=== PATIENT | female | born 1945 | race Caucasian/White ===

== ENCOUNTER 2019-10-15 12:11 | Inpatient (IN) | payer MEDICARE ==
[~2019-10-15] VITALS: Ht 165.1 cm; Wt 95.2 kg
--- NOTE | 2019-10-15 12:20 | NUR ---
PT BROUGHT IN BY [facility] FROM [facility] FOR WORSENING PNEUMONIA. PER REPORT PT DX WITH JACOB 3 WEEKS AGO, FINISHED ABX, HOWEVER WORSENING COUGH. PATIENT ABLE TO COMPLETE FULL SENTANCES.
[2019-10-15] MEDS ORDERED: ALBUTEROL/IPRATROPIUM 2.5MG/0.5MG, 3 ML NPPB ONE (12:30)
[2019-10-15] MEDS ORDERED: SODIUM CHLORIDE FLUSH 10ML SYR IVF ONE ×2 (12:30→14:00)
[2019-10-15] MEDS ORDERED: CEFTRIAXONE PMX 1GM/50ML 50 ML IVPB ONE (12:30)
[2019-10-15] MEDS ORDERED: ALBUTEROL/IPRATROPIUM 2.5MG/0.5MG, 3 ML ONE (12:32)
[2019-10-15] MEDS ORDERED: CEFTRIAXONE PMX 1GM/50ML 50 ML ONE (12:36)
[2019-10-15] MEDS ORDERED: DOXYCYCLINE 100MG TABLET ONE (12:37)
[2019-10-15] MEDS ORDERED: PLEASE ENTER ALLERGIES MC SCH (13:00)
[2019-10-15 13:21] LABS: MEAN CORPUSCULAR HEMOGLOBIN 29.3 pg (27.0-34.8); MEAN CORPUSCULAR HGB CONC 33.4 g/dL (32.4-35.8); MEAN CORPUSCULAR VOLUME 87.8 fL (80-100); MEAN PLATELET VOLUME 8.7 fL (7.4-10.4); PLATELET COUNT 254 x10^3/uL (130-400); RED BLOOD COUNT 4.59 x10^6/uL (3.82-5.3); RED CELL DISTRIBUTION WIDTH 14.6 % (9.6-15.2)
[2019-10-15 13:30] LABS: ALBUMIN 3.3 g/dL (3.4-5.0); ANION GAP 9 mmol/L (5-15); CALCIUM 8.9 mg/dL (8.5-10.1); CHLORIDE 105 mmol/L (98-107); CREATININE 0.75 mg/dL (0.55-1.02)
[2019-10-15] MEDS ORDERED: DOXYCYCLINE 100 MG in DEXTROSE 5% 250 ML IV ONE (13:30)
[2019-10-15 13:34] LABS: TROPONIN I < 0.015 ng/mL (0.000-0.045)
--- NOTE | 2019-10-15 13:49 | NUR ---
PT RESTING IN BED. CALL LIGHT IN REACH
[2019-10-15 13:54] LABS: BASOPHILS # (AUTO) 0.14 x10^3/uL (0-0.1); BASOPHILS % (AUTO) 1 % (0-1); EOSINOPHILS # (AUTO) 0.27 x10^3/uL (0-0.4); EOSINOPHILS % (AUTO) 1 % (1-7); LYMPHOCYTES # (AUTO) 1.89 x10^3/uL (1-3.4); LYMPHOCYTES % (AUTO) 7 % (22-44); MD SCAN; MONOCYTES # (AUTO) 1.24 x10^3/uL (0.2-0.8); MONOCYTES % (AUTO) 5 % (2-9); NEUTROPHILS # (AUTO) 24.16 x10^3/uL (1.8-6.8); NEUTROPHILS % (AUTO) 87 % (42-75)
[2019-10-15] MEDS ORDERED: PIPERACILLIN/TAZO/PMX 3.375GM 50 ML IVPB ONE (14:00)
[2019-10-15] MEDS ORDERED: SODIUM CHLORIDE 0.9% 1,000ML IVBOLUS ONE (14:00)
--- NOTE | 2019-10-15 14:39 | NUR ---
ERMD AT BEDSIDE TO DISCUSS POC
[2019-10-15] MEDS ORDERED: PIPERACILLIN/TAZO/PMX 3.375GM 50 ML ONE (14:40)
[2019-10-15] MEDS ORDERED: ENOXAPARIN 40 MG/0.4 ML ONE (15:19)
[2019-10-15] MEDS ORDERED: ENOXAPARIN 40 MG/0.4 ML SQ SCH (15:30)
--- NOTE | 2019-10-15 15:50 | NUR ---
REPORT CALLED LEATHA MARROQUIN. PT AWARE OF POC
[2019-10-15 18:30] VITALS: BP 116/63
[2019-10-15] MEDS: SODIUM CHLORIDE 0.9% 1,000 ML IV SCH (20:00)
[2019-10-15] MEDS: DOXYCYCLINE 100MG TABLET PO SCH (20:08)
[2019-10-15 20:14] VITALS: BP 116/72
[2019-10-16] MEDS: CEFTRIAXONE PMX 2GM/50ML 50 ML IV SCH (01:11)
[2019-10-16] MEDS: SODIUM CHLORIDE 0.9% 1,000 ML IV SCH ×3 (05:00→21:04)
[2019-10-16 05:22] LABS: MEAN CORPUSCULAR HEMOGLOBIN 29.6 pg (27.0-34.8); MEAN CORPUSCULAR HGB CONC 33.1 g/dL (32.4-35.8); MEAN CORPUSCULAR VOLUME 89.2 fL (80-100); MEAN PLATELET VOLUME 8.6 fL (7.4-10.4); PLATELET COUNT 214 x10^3/uL (130-400); RED BLOOD COUNT 3.89 x10^6/uL (3.82-5.3); RED CELL DISTRIBUTION WIDTH 14.5 % (9.6-15.2)
[2019-10-16 05:30] LABS: CHLORIDE 109 mmol/L (98-107)
[2019-10-16 05:45] LABS: ANION GAP 6 mmol/L (5-15); CALCIUM 8.4 mg/dL (8.5-10.1); CREATININE 0.61 mg/dL (0.55-1.02)
[2019-10-16 06:07] LABS: BASOPHILS # (AUTO) 0.02 x10^3/uL (0-0.1); BASOPHILS % (AUTO) 0 % (0-1); EOSINOPHILS # (AUTO) 0.13 x10^3/uL (0-0.4); EOSINOPHILS % (AUTO) 1 % (1-7); LYMPHOCYTES % (AUTO) 12 % (22-44); MD SCAN; MONOCYTES # (AUTO) 1.18 x10^3/uL (0.2-0.8); MONOCYTES % (AUTO) 6 % (2-9); NEUTROPHILS # (AUTO) 15.37 x10^3/uL (1.8-6.8); NEUTROPHILS % (AUTO) 81 % (42-75)
[2019-10-16 08:09] VITALS: BP 103/66
[2019-10-16] MEDS: DOXYCYCLINE 100MG TABLET PO SCH ×2 (09:18→21:04)
[2019-10-16] MEDS: ACETAMINOPHEN 325 MG TABLET PO PRN ×2 (09:30→13:43)
[2019-10-16] MEDS ORDERED: OXYB15TA18 PO (09:35)
[2019-10-16 12:58] VITALS: BP 122/56
[2019-10-16] MEDS: OXYBUTYNIN CHLORIDE 5 MG TABLET PO SCH ×3 (12:58→21:04)
[2019-10-16] MEDS: ENOXAPARIN 40 MG/0.4 ML SQ SCH (17:27)
[2019-10-16 19:38] VITALS: BP 115/77
[2019-10-17] MEDS: CEFTRIAXONE PMX 2GM/50ML 50 ML IV SCH (01:35)
[2019-10-17] MEDS: SODIUM CHLORIDE 0.9% 1,000 ML IV SCH ×3 (05:00→20:40)
[2019-10-17 05:51] VITALS: BP 120/75
[2019-10-17 06:25] LABS: BASOPHILS # (AUTO) 0.05 x10^3/uL (0-0.1); BASOPHILS % (AUTO) 0 % (0-1); EOSINOPHILS # (AUTO) 0.25 x10^3/uL (0-0.4); EOSINOPHILS % (AUTO) 2 % (1-7); LYMPHOCYTES # (AUTO) 1.64 x10^3/uL (1-3.4); LYMPHOCYTES % (AUTO) 13 % (22-44); MD NO; MEAN CORPUSCULAR HEMOGLOBIN 29.4 pg (27.0-34.8); MEAN PLATELET VOLUME 8.9 fL (7.4-10.4); MONOCYTES # (AUTO) 0.83 x10^3/uL (0.2-0.8); MONOCYTES % (AUTO) 7 % (2-9); NEUTROPHILS # (AUTO) 9.71 x10^3/uL (1.8-6.8); NEUTROPHILS % (AUTO) 78 % (42-75); PLATELET COUNT 231 x10^3/uL (130-400); RED BLOOD COUNT 3.82 x10^6/uL (3.82-5.3); RED CELL DISTRIBUTION WIDTH 14.1 % (9.6-15.2)
[2019-10-17 06:27] LABS: ANION GAP 5 mmol/L (5-15); CALCIUM 8.7 mg/dL (8.5-10.1); CHLORIDE 112 mmol/L (98-107); CREATININE 0.57 mg/dL (0.55-1.02)
[2019-10-17 07:13] VITALS: BP 112/72
[2019-10-17] MEDS ORDERED: GUAIFENESIN/DM 200-20MG, 10ML UDC PO PRN (08:30)
[2019-10-17] MEDS: DOXYCYCLINE 100MG TABLET PO SCH ×2 (08:35→20:39)
[2019-10-17] MEDS: OXYBUTYNIN CHLORIDE 5 MG TABLET PO SCH ×3 (08:35→20:40)
[2019-10-17] MEDS: GUAIFENESIN ER 600 MG TABLET PO SCH ×2 (08:36→20:39)
[2019-10-17] MEDS: BENZONATATE 100 MG CAPSULE PO SCH ×3 (08:36→20:39)
[2019-10-17] MEDS: ENOXAPARIN 40 MG/0.4 ML SQ SCH (15:30)
[2019-10-17 15:41] VITALS: BP 118/74
[2019-10-17 19:34] VITALS: BP 129/75
[2019-10-18] MEDS: CEFTRIAXONE PMX 2GM/50ML 50 ML IV SCH (01:09)
[2019-10-18 01:45] VITALS: BP 127/71
[2019-10-18 05:20] LABS: BASOPHILS # (AUTO) 0.16 x10^3/uL (0-0.1); BASOPHILS % (AUTO) 2 % (0-1); EOSINOPHILS % (AUTO) 3 % (1-7); LYMPHOCYTES # (AUTO) 1.92 x10^3/uL (1-3.4); LYMPHOCYTES % (AUTO) 18 % (22-44); MD NO; MEAN CORPUSCULAR HEMOGLOBIN 29.3 pg (27.0-34.8); MEAN CORPUSCULAR HGB CONC 33.2 g/dL (32.4-35.8); MEAN CORPUSCULAR VOLUME 88.4 fL (80-100); MEAN PLATELET VOLUME 9.3 fL (7.4-10.4); MONOCYTES # (AUTO) 0.85 x10^3/uL (0.2-0.8); MONOCYTES % (AUTO) 8 % (2-9); NEUTROPHILS # (AUTO) 7.39 x10^3/uL (1.8-6.8); NEUTROPHILS % (AUTO) 70 % (42-75); PLATELET COUNT 244 x10^3/uL (130-400); RED BLOOD COUNT 3.73 x10^6/uL (3.82-5.3)
[2019-10-18 07:54] VITALS: BP 138/85
[2019-10-18] MEDS: SODIUM CHLORIDE 0.9% 1,000 ML IV SCH (08:00)
[2019-10-18] MEDS ORDERED: DOXY100T23 PO (08:10)
[2019-10-18] MEDS ORDERED: BENZ-17 PO (08:10)
[2019-10-18] MEDS ORDERED: CEFD300C37 PO (08:10)
[2019-10-18] MEDS ORDERED: GUAI600T31 PO (08:10)
[2019-10-18] MEDS: OXYBUTYNIN CHLORIDE 5 MG TABLET PO SCH (09:00)
[2019-10-18] MEDS: BENZONATATE 100 MG CAPSULE PO SCH (09:14)
[2019-10-18] MEDS: GUAIFENESIN ER 600 MG TABLET PO SCH (09:14)
[2019-10-18] MEDS: DOXYCYCLINE 100MG TABLET PO SCH (09:14)
== END 2019-10-18 10:28 | disposition home or self-care (01) | DRG 871 ==
LOC: ED 14:57 → EDIP 14:58 → ED 15:26 → 3N 16:24
PROVIDERS: ADMIT Internal Medicine Infectious Disease; ATTEND Internal Medicine Infectious Disease
DX: A41.9 Sepsis, unspecified organism (principal); J15.9 Unspecified bacterial pneumonia; J96.01 Acute respiratory failure with hypoxia; N32.81 Overactive bladder; Z87.01 Personal history of pneumonia (recurrent); Z90.710 Acquired absence of both cervix and uterus; Z92.21 Personal history of antineoplastic chemotherapy; Z79.899 Other long term (current) drug therapy
CPT/HCPCS: 36415; 80048; 82040; 83605; 83880; 84145; 84484; 85025; 86738; 87040; 87070; 87205; 93005; 94640; 99285; G0378; J0696; J1650; J2543; J7060; J7030